=== PATIENT | female | born 2000 | race African-American/Black ===

== ENCOUNTER 2024-02-01 20:20 | Emergency (ER) | payer OTHER ==
[~2024-02-01] VITALS: Ht 170.2 cm; Wt 63.6 kg
[~2024-02-01 20:20] MED LIST: [UNRECOGNIZED DRUG - CODE] TD
[2024-02-01 20:30] VITALS: TEMP 97.7
[2024-02-02] MEDS ORDERED: KETO10TA2 PO (00:36)
[2024-02-02] MEDS: KETOROLAC TROMETHAMINE 30 MG/ML VIAL IM ONE (00:41)
[2024-02-02 00:47] VITALS: BP 128/74; PULSE 79; RESP 18
== END 2024-02-02 00:48 | disposition home or self-care (01) ==
LOC: EMS 20:20
DX: N94.6 Dysmenorrhea, unspecified (principal); N93.8 Other specified abnormal uterine and vaginal bleeding; Z88.0 Allergy status to penicillin
CPT/HCPCS: 99283; 96372; J1885